=== PATIENT | female | born 2000 | race Caucasian/White ===

== ENCOUNTER 2024-09-22 17:56 | Emergency (ER) | payer OTHER ==
[~2024-09-22] VITALS: Ht 170.2 cm; Wt 68.0 kg
[2024-09-22 17:57] VITALS: O2SAT 100
[2024-09-22 18:13] VITALS: TEMP 36.6; O2SAT 99
[2024-09-22 18:45] VITALS: BP 119/80; PULSE 66; RESP 14
[2024-09-22] MEDS: KETOROLAC 15MG/ML VIAL IM ONE (18:45)
[2024-09-22] MEDS: CYCLOBENZAPRINE 10MG TABLET PO ONE (18:45)
== END 2024-09-22 20:30 | disposition home or self-care (01) ==
LOC: ER 17:56
DX: M54.2 Cervicalgia (principal); R51.9 Headache, unspecified; M25.511 Pain in right shoulder; M25.531 Pain in right wrist; M79.18 Myalgia, other site; Z98.890 Other specified postprocedural states; V89.2XXA Person injured in unspecified motor-vehicle accident, traffic, initial encounter; Y93.89 Activity, other specified; Y92.89 Other specified places as the place of occurrence of the external cause; Y99.8 Other external cause status
CPT/HCPCS: 99285; 70450; 73030; 73110; 72125; 96372; J1885